=== PATIENT | female | born 1955 | race Caucasian/White ===

== ENCOUNTER 2021-12-23 08:33 | Outpatient (CLI) | payer OTHER, SELFPAY ==
[2021-12-23 13:09] LABS: Basophils Absolute Auto 0.03 K/uL (0.00-0.30); Basophils Percent Auto 0.6 % (0.0-3.0); Eosinophils Absolute Auto 0.09 K/uL (0.00-0.50); Eosinophils Percent Auto 1.7 % (0.0-7.0); Hematocrit 43.7 % (33.0-51.0); Hemoglobin* 14.2 gm/dL (12.0-16.0); Immature Granulocytes Abs Auto 0.01 K/uL (0.00-0.30); Lymphocytes Absolute Auto 2.19 K/uL (0.90-2.90); Lymphocytes Percent Auto 40.6 % (20-44); Mean Corpuscular HGB Conc 33 gm/dL (32-36); Mean Corpuscular Hemoglobin 31 pg (26-34); Mean Corpuscular Volume 96 fL (80-100); Monocytes Percent Auto 7.6 % (0.0-11.0); Neutrophils Absolute Auto 2.66 K/uL (1.7-7.0); Neutrophils Percent Auto 49.3 % (42.0-72.0); Platelet Count* 211 K/uL (140-440); RDW Coefficient of Variation % 12.8 % (11.5-15.5); Red Blood Count 4.54 m/uL (4.00-5.20); White Blood Count* 5.39 K/uL (4.50-11.00)
[2021-12-23 13:13] LABS: Slide Review Reflex No
[2021-12-23 13:18] LABS: Cholesterol* 182 mg/dL (90-199); Triglycerides* 205 mg/dL (40-149)
[2021-12-23 13:19] LABS: HDL Cholesterol* 52 mg/dL (>=50); LDL Cholesterol Calculated 89 mg/dL (<100)
[2021-12-23 13:32] LABS: Vitamin D 25 Hydroxy* 55 ng/mL (30-80)
[2021-12-23 14:16] LABS: Free T4 Free Thyroxine* 1.36 ng/dL (0.70-1.85)
== END 2021-12-23 08:34 | disposition home or self-care (01) ==
PROVIDERS: PCP Family Medicine; Visit Provider Family Medicine
DX: Z13.6 Encounter for screening for cardiovascular disorders (principal); Z13.29 Encounter for screening for other suspected endocrine disorder; Z13.0 Encounter for screening for diseases of the blood and blood-forming organs and certain disorders involving the immune mechanism; Z13.9 Encounter for screening, unspecified
CPT/HCPCS: 80061; 82306; 84439; 84443; 85025